=== PATIENT | male | born 1990 | race African-American/Black ===

== ENCOUNTER 2023-05-09 22:23 | Emergency (ER) | payer OTHER ==
[~2023-05-09] VITALS: Ht 177.8 cm; Wt 69.0 kg
[2023-05-09] MEDS ORDERED: LORAZEPAM 2MG/ML CPJ IV STA (22:41)
[2023-05-09] MEDS ORDERED: KETOROLAC 15MG/ML VIAL IV ONE (22:45)
[2023-05-09] MEDS ORDERED: SODIUM CHLORIDE 0.9% 1,000 ML IV ONE (22:45)
[2023-05-09] MEDS ORDERED: LORAZEPAM 2MG/ML CPJ IV PRN (23:00)
[2023-05-09] MEDS ORDERED: OLANZAPINE 10 MG/VIAL IM PRN (23:00)
[2023-05-09 23:05] LABS: HEMATOCRIT. 40.7 % (42.0-52.0); HEMOGLOBIN. 13.8 g/dL (14.0-18.0); MEAN CORPUSCULAR HEMOGLOBIN 29.7 pg (28.0-32.0); MEAN CORPUSCULAR VOLUME 87.6 fL (80.0-94.0); MEAN PLATELET VOLUME 8.8 fl (7.4-10.4); PLATELET 307 x1000/uL (130-400); RED BLOOD CELL COUNT 4.64 mill/uL (4.7-6.1); RED CELL DISTRIBUTION WIDTH 14.8 % (11.6-14.6); WHITE BLOOD COUNT 8.5 x1000/uL (4.5-11.0)
[2023-05-09 23:07] LABS: DIFFERENTIAL COMMENT 1
[2023-05-09] MEDS ORDERED: LORAZEPAM 2MG/ML UD SYRINGE IV PRN (23:15)
[2023-05-09] MEDS ORDERED: LORAZEPAM 2MG/ML UD SYRINGE IV NR (23:15)
[2023-05-09 23:18] LABS: AMMONIA < 10 uMol/L (<32)
[2023-05-09 23:31] LABS: ACETAMINOPHEN < 2 ug/mL (10-30); ALANINE AMINOTRANSFERASE 33 IU/L (10-49); ALBUMIN 4.6 g/dL (3.2-4.8); ASPARTATE AMINOTRANSFERASE 70 IU/L (<34); BILIRUBIN TOTAL 0.8 mg/dL (0.1-1.0); CARBON DIOXIDE 22 mEq/L (21-32); CHLORIDE 105 mEq/L (98-107); CREATINE KINASE 2501 IU/L (46-171); CREATININE 1.1 mg/dL (0.6-1.3); GLUCOSE 123 mg/dL (70-105); POTASSIUM 4.1 mEq/L (3.5-5.1); PROTEIN TOTAL 7.9 g/dL (6.0-8.3); SODIUM 139 mEq/L (136-145); TROPONIN I HIGH SENSITIVITY 8 ng/L (3.0-53); UREA NITROGEN BLOOD 12 mg/dL (9-23)
[2023-05-09 23:36] LABS: PLATELET ESTIMATE NORMAL
[2023-05-09 23:37] LABS: ANISOCYTOSIS 1+; LACTIC ACID 2.7 mmol/L (0.4-2.0)
[2023-05-09 23:43] LABS: ETHANOL BLOOD < 10 mg/dL (<10)
[2023-05-10] MEDS ORDERED: SODIUM CHLORIDE 0.9% 1,000 ML IV ONE
[2023-05-10 00:08] LABS: CLARITY URINE CLOUDY (CLEAR); COLOR URINE DARK YELLOW (YELLOW); GLUCOSE URINE NEGATIVE (NEGATIVE); KETONES URINE 1+ (NEGATIVE); LEUKOCYTE ESTERASE URINE TRACE (NEGATIVE); NITRITE URINE NEGATIVE (NEGATIVE); OCCULT BLOOD URINE NEGATIVE (NEGATIVE); PH URINE 6.5 (4.5-8.0); PROTEIN URINE 1+ (NEGATIVE); SPECIFIC GRAVITY URINE 1.031 (1.005-1.030)
[2023-05-10 00:15] VITALS: O2SAT 100
[2023-05-10 00:20] LABS: *AMPHETAMINES SCREEN URINE NEGATIVE (NEGATIVE); *BARBITURATES SCREEN URINE NEGATIVE (NEGATIVE); *BENZODIAZEPINES SCREEN URINE NEGATIVE (NEGATIVE); *COCAINE SCREEN URINE NEGATIVE (NEGATIVE); CANNABINOID URINE SCREEN NEGATIVE (NEGATIVE); ECSTASY MDMA SCREEN URINE NEGATIVE (NEGATIVE); METHADONE URINE SCREEN Neg (NEGATIVE); OPIATES URINE SCREEN NEGATIVE (NEGATIVE); PHENCYCLIDINE URINE SCREEN NEGATIVE (NEGATIVE)
[2023-05-10 02:00] LABS: BACTERIA URINE NONE SEEN; RBC URINE 0-2 /hpf (0-2); SQUAMOUS EPITHELIAL CELL URINE NONE SEEN /lpf (RARE/1+); WBC URINE 0-2 /hpf (0-2)
[2023-05-10 05:28] LABS: CREATINE KINASE 1757 IU/L (46-171)
[2023-05-10] MEDS ORDERED: QUETIAPINE FUMARATE 50MG TABLET PO SCH ×2 (09:00→21:00)
[2023-05-10 12:43] VITALS: BP 136/76; PULSE 93; RESP 16; TEMP 98.2
== END 2023-05-10 12:44 ==
LOC: ER 22:23
DX: F41.0 Panic disorder [episodic paroxysmal anxiety] (principal); R00.0 Tachycardia, unspecified; Z20.822 Contact with and (suspected) exposure to COVID-19
CPT/HCPCS: 80053; 80305; 81003; 80307; 80329; 80320; 82140; 82550 ×2; 83880; 83605 ×2; 85025; 85379; 87040; 84484; 36415 ×2; 84145; 71045; 93005; 96374; 96375; 99285; 87426; 87804 ×2; 71275; 96361; 96372; J3490; J1885; J2060; J7030 ×2; C9803; Z7610; G0480

== ENCOUNTER 2023-12-31 20:18 | Inpatient (IN) | payer MEDICAID ==
[~2023-12-31] VITALS: Ht 177.8 cm; Wt 78.0 kg
[2023-12-31 21:07] LABS: BASOPHILS % 0.8 % (0.0-2.0); EOSINOPHILS % 8.5 % (0.0-5.0); HEMATOCRIT. 45.2 % (42.0-52.0); HEMOGLOBIN. 14.8 g/dL (14.0-18.0); LYMPHOCYTES % 46.5 % (20.0-50.0); MEAN CORPUSCULAR HEMOGLOBIN 29.9 pg (28.0-32.0); MEAN CORPUSCULAR HGB CONC 32.8 g/dL (31.0-37.0); MEAN CORPUSCULAR VOLUME 91.3 fL (80.0-94.0); MEAN PLATELET VOLUME 8.4 fl (7.4-10.4); MONOCYTES % 8.6 % (2.0-8.0); NEUTROPHILS % 35.6 % (40.0-76.0); PLATELET 213 x1000/uL (130-400); RED BLOOD CELL COUNT 4.95 mill/uL (4.7-6.1); RED CELL DISTRIBUTION WIDTH 14.5 % (11.6-14.6); WHITE BLOOD COUNT 5.3 x1000/uL (4.5-11.0)
[2023-12-31 21:10] LABS: CHLORIDE 109 mEq/L (98-107); POTASSIUM 4.3 mEq/L (3.5-5.1); SODIUM 141 mEq/L (136-145)
[2023-12-31 21:11] LABS: CALCIUM 10.1 mg/dL (8.7-10.4); CARBON DIOXIDE 28 mEq/L (21-32)
[2023-12-31] MEDS: LORAZEPAM 2MG/ML INJ IV ONE (21:14)
[2023-12-31] MEDS: LEVETIRACETAM 500MG PREMIX 100 ML IV ONE (21:14)
[2023-12-31 21:16] LABS: GLUCOSE 90 mg/dL (70-105); UREA NITROGEN BLOOD 10 mg/dL (9-23)
[2023-12-31 21:20] LABS: ETHANOL BLOOD < 10 mg/dL (<10); TROPONIN I HIGH SENSITIVITY < 4 ng/L (3.0-53)
[2024-01-01 00:41] LABS: TROPONIN I HIGH SENSITIVITY < 4 ng/L (3.0-53)
[2024-01-01] MEDS: LEVETIRACETAM 500MG PREMIX 100 ML IV ONE (01:14)
[2024-01-01 04:50] VITALS: BP 126/82; PULSE 67; RESP 18; TEMP 36.5292
[2024-01-01 08:00] VITALS: BP 142/58; PULSE 62; RESP 16; TEMP 36.55848
[2024-01-01] MEDS ORDERED: GUAIFENESIN 200MG/10ML SUGAR FREE UDC PO PRN (08:30)
[2024-01-01] MEDS ORDERED: DOCUSATE SODIUM 100MG CAPSULE PO PRN (08:30)
[2024-01-01] MEDS ORDERED: ONDANSETRON HCL 4MG/2ML INJ IV PRN (08:30)
[2024-01-01] MEDS ORDERED: MAGNESIUM/ALUMINUM HYDROXIDE/SIMETHICONE 30ML UDC PO PRN (08:30)
[2024-01-01] MEDS ORDERED: ACETAMINOPHEN 325MG TABLET PO PRN (08:30)
[2024-01-01] MEDS ORDERED: IPRATROPIUM/ALBUTEROL 0.5-3(2.5)MG/3ML NEB HHN PRN (08:30)
[2024-01-01] MEDS ORDERED: CLONIDINE 0.1MG TABLET PO PRN (08:30)
[2024-01-01] MEDS ORDERED: LORAZEPAM 2MG/ML INJ IV PRN (08:30)
[2024-01-01] MEDS: LEVETIRACETAM 500MG PREMIX 100 ML IV SCH (10:36)
[2024-01-01 12:00] VITALS: BP 111/65; PULSE 61; RESP 16; TEMP 36.28068; O2SAT 99
[2024-01-01 13:05] LABS: CLARITY URINE CLEAR (CLEAR); COLOR URINE YELLOW (YELLOW); GLUCOSE URINE NEGATIVE (NEGATIVE); KETONES URINE NEGATIVE (NEGATIVE); LEUKOCYTE ESTERASE URINE NEGATIVE (NEGATIVE); NITRITE URINE NEGATIVE (NEGATIVE); OCCULT BLOOD URINE NEGATIVE (NEGATIVE); PH URINE 5.5 (4.5-8.0); PROTEIN URINE NEGATIVE (NEGATIVE); SPECIFIC GRAVITY URINE 1.012 (1.005-1.030); UROBILINOGEN URINE 0.2 E.U./dL (0.2-1.0)
[2024-01-01 13:39] LABS: CREATINE KINASE 177 IU/L (46-171)
[2024-01-01 13:46] LABS: *AMPHETAMINES SCREEN URINE NEGATIVE (NEGATIVE); *BENZODIAZEPINES SCREEN URINE NEGATIVE (NEGATIVE)
[2024-01-01 13:47] LABS: *BARBITURATES SCREEN URINE NEGATIVE (NEGATIVE); *COCAINE SCREEN URINE NEGATIVE (NEGATIVE); CANNABINOID URINE SCREEN NEGATIVE (NEGATIVE); ECSTASY MDMA SCREEN URINE NEGATIVE (NEGATIVE); METHADONE URINE SCREEN NEGATIVE (NEGATIVE); OPIATES URINE SCREEN NEGATIVE (NEGATIVE); PHENCYCLIDINE URINE SCREEN NEGATIVE (NEGATIVE)
[2024-01-01 16:00] VITALS: BP 100/58; PULSE 65; RESP 16; TEMP 36.28068; O2SAT 99
[2024-01-01 18:50] VITALS: BP 100/58; PULSE 83; TEMP 97.3; O2SAT 99
== END 2024-01-02 00:12 | disposition short-term general hospital (02) | DRG 53 ==
LOC: ER 20:18 → 5WST 22:11 → EDBEDREQ 22:19 → 7EST 01-01 05:45
PROVIDERS: ADMIT Preventive Medicine Clinical Informatics; ATTEND Preventive Medicine Clinical Informatics
DX: R56.9 Unspecified convulsions (principal); F20.9 Schizophrenia, unspecified; K59.00 Constipation, unspecified; Y90.0 Blood alcohol level of less than 20 mg/100 ml; R32 Unspecified urinary incontinence; Z79.899 Other long term (current) drug therapy
CPT/HCPCS: 36415; 80048; 80305; 80320; 81003; 82550; 82962; 84484; 85025; 92610; 99285; J1953; J2060; G0480